=== PATIENT | female | born 1965 | race Two or more races ===

== ENCOUNTER 2017-03-29 21:37 | Emergency (ER) | payer BC, OTHER ==
[~2017-03-29] VITALS: Ht 149.9 cm; Wt 67.6 kg
[2017-03-29] MEDS ORDERED: oxyCODONE/APAP (5/325 MG) 1 UDTAB TABLET ONE (21:44)
--- NOTE | 2017-03-29 21:44 | NUR ---
SHEELA JOHNSON HOME FOR RT KNEE PAIN S/P TRIP AND FALL ON TREADMILL TODAY. PT AOX3 RR EVEN AND UNLABORED. NO SOB NOTED. NAD NOTED. NO NVD A TTHIS TIME. PT GOWNED AND PLACED ON MONITOR . DATA WAREHOUSE ANALYST DEGRASSI AT BEDSIDE FOR EVAL. PT DENIES KO.
--- NOTE | 2017-03-29 21:53 | NUR ---
RADIOLOGY AT BEDSIDE FOR RIGHT KNEE XRAY
[2017-03-29] MEDS ORDERED: oxyCODONE/APAP (5/325 MG) 1 UDTAB TABLET PO ONE (22:00)
--- NOTE | 2017-03-29 22:40 | NUR ---
FAMILY AT BEDSIDE
--- NOTE | 2017-03-29 23:02 | NUR ---
UTILITY REPAIRER JOSE AT BEDSIDE SPEAKING TO PT REGARDING RESULTS.
--- NOTE | 2017-03-29 23:21 | NUR ---
Patient discharged to home in stable condition. Written and verbal after care instructions given. Patient verbalizes understanding of instruction. ambulatory with a steady gait with crutches. pt instructed not to drive. pt verbalize understanding. pt accompanied by daughter.
[2017-03-29 23:22] VITALS: BP 124/68
== END 2017-03-29 23:23 | disposition home or self-care (01) ==
LOC: ER 21:38
DX: S89.91XA Unspecified injury of right lower leg, initial encounter (principal); W01.198A Fall on same level from slipping, tripping and stumbling with subsequent striking against other object, initial encounter; Y93.89 Activity, other specified; Y92.89 Other specified places as the place of occurrence of the external cause; Y99.8 Other external cause status
CPT/HCPCS: 29505; 73564; 99284; A4606; Z7610